=== PATIENT | female | born 1950 | race Two or more races ===

== ENCOUNTER 2021-05-13 18:46 | Inpatient (IN) | payer OTHER ==
[~2021-05-13] VITALS: Ht 170.2 cm; Wt 59.1 kg
[2021-05-13] MEDS ORDERED: NOREPINEPHRINE 8 MG/250ML KIT 250 ML IV ONE (18:54)
[2021-05-13] MEDS ORDERED: NOREPINEPHRINE 8 MG/250ML KIT 250 ML IV SCH (19:15)
[2021-05-13 19:55] LABS: Hematocrit 41.1 % (36.0-46.0); Hemoglobin 13.3 g/dL (12.2-16.2); Mean Corpuscular Hemoglobin 30.7 pg (28.0-32.0); Mean Corpuscular Hgb Conc. 32.3 g/dL (32.0-36.0); Mean Corpuscular Volume 94.8 fL (80.0-100.0); Platelet Count (auto) 121 10^3/uL (140-450); Red Blood Cells 4.34 10^6/uL (4.0-5.20); Red Cell Distribution Width 13.4 % (11.8-14.3); White Blood Cell 12.2 10^3/uL (4.4-10.8)
[2021-05-13 20:07] LABS: Basophils % (manual) 0 (0.0-2.0); Blast Cells 0; Promyelocytes % 0
[2021-05-13 20:20] LABS: Albumin 2.6 g/dL (3.4-5.0); Calcium 8.2 mg/dL (8.5-10.1); Magnesium 2.6 mg/dL (1.6-2.6); Potassium 4.3 mmol/L (3.5-5.1)
[2021-05-13 20:24] LABS: BUN/Creatinine Ratio 22.5; Bilirubin, Total 0.2 mg/dL (0.2-1.0); Total Protein 6.1 g/dL (6.4-8.2)
[2021-05-13] MEDS ORDERED: SODIUM CHLORIDE 0.9% 1,000 ML IV ONE (20:30)
[2021-05-13 20:54] LABS: INR 1.11 (0.9-1.15); Partial Thromboplastin Time 26.6 sec (23.0-31.2)
[2021-05-13 21:08] LABS: Band Neutrophils % (manual) 14; Eosinophils % (manual) 1 (0-7); Metamyelocytes % 6; Monocytes % (manual) 8 (0-12); Myelocytes % 2; Reactive Lymphocytes 3
[2021-05-13 21:09] LABS: Lymphocytes % (manual) 36 (10.0-50.0)
[2021-05-13] MEDS ORDERED: MORPHINE SULF INJ 2 MG/ML SYRINGE 1ML IV PRN (21:30)
[2021-05-13] MEDS ORDERED: ONDANSETRON HCL 4 MG/2 ML VIAL IV PRN ×2 (21:30→22:15)
[2021-05-13] MEDS ORDERED: ALBUMIN 5% 250 ML IV ONE (21:30)
[2021-05-13] MEDS ORDERED: NITROGLYCERIN 0.4 MG SL TAB SL PRN (21:30)
[2021-05-13] MEDS ORDERED: ATORVASTATIN 20 MG TAB PO SCH (22:00)
[2021-05-14] MEDS: MORPHINE SULFATE 4 MG/ML SYR/VIAL IV PRN ×2 (00:58→06:18)
[2021-05-14 01:16] VITALS: BP 109/63
[2021-05-14] MEDS ORDERED: DEXA2TAB PO (01:31)
[2021-05-14] MEDS ORDERED: PHE100C PO (01:31)
[2021-05-14] MEDS ORDERED: ATOR20TA50 PO (01:31)
[2021-05-14] MEDS: LORazepam 2MG/ML-1ML VIAL IV PRN ×7 (03:03→23:09)
[2021-05-14 04:00] VITALS: BP 126/77
[2021-05-14] MEDS: SODIUM CHLORIDE 0.9% 1,000 ML IV SCH ×3 (06:17→11:11)
[2021-05-14] MEDS ORDERED: PANTOPRAZOLE 40 MG/10 ML VIAL INJ IV SCH (10:00)
[2021-05-14] MEDS ORDERED: ASPirin 81 mg TAB PO SCH (10:00)
[2021-05-14] MEDS ORDERED: MORPHINE SULFATE 4 MG/ML SYR/VIAL IV PRN (15:45)
[2021-05-14] MEDS: MORPHINE SULF INJ 2 MG/ML SYRINGE 1ML IV PRN (15:52)
[2021-05-15] MEDS: LORazepam 2MG/ML-1ML VIAL IV PRN ×10 (01:25→18:46)
[2021-05-15 08:00] VITALS: BP 130/74
[2021-05-15 11:55] VITALS: BP 113/58
[2021-05-15] MEDS: SODIUM CHLORIDE 0.9% 1,000 ML IV SCH (13:30)
[2021-05-15 16:00] VITALS: BP 114/64
[2021-05-16] MEDS: SODIUM CHLORIDE 0.9% 1,000 ML IV SCH ×2 (02:50→15:57)
[2021-05-16 09:00] VITALS: BP 123/71
[2021-05-16] MEDS: LORazepam 2MG/ML-1ML VIAL IV PRN ×2 (09:14→16:21)
[2021-05-16 13:00] VITALS: BP 137/70
[2021-05-16] MEDS: MORPHINE SULF INJ 2 MG/ML SYRINGE 1ML IV PRN ×3 (13:55→16:54)
[2021-05-16] MEDS ORDERED: MORPHINE SULF INJ 2 MG/ML SYRINGE 1ML IV PRN (14:15)
[2021-05-16 15:12] VITALS: BP 137/70
[2021-05-16 16:53] VITALS: BP 122/56
== END 2021-05-16 17:50 | disposition hospice, home (50) | DRG 280 ==
LOC: EDBD 18:46 → ER 18:52 → EDBD 18:52 → TELE-CENTR 22:05
PROVIDERS: ADMIT Nurse Practitioner; ATTEND Internal Medicine Geriatric Medicine
DX: I21.4 Non-ST elevation (NSTEMI) myocardial infarction (principal); I46.9 Cardiac arrest, cause unspecified; J96.00 Acute respiratory failure, unspecified whether with hypoxia or hypercapnia; E87.2 Acidosis; D49.6 Neoplasm of unspecified behavior of brain; Z66 Do not resuscitate; I10 Essential (primary) hypertension; Z51.5 Encounter for palliative care; Z20.822 Contact with and (suspected) exposure to COVID-19; E78.5 Hyperlipidemia, unspecified
CPT/HCPCS: 36415; 36600; 71045; 80053; 82805; 83735; 84484; 85007; 85027; 85610; 85730; 87040; 87081; 87426; 93005; 96365; 96366; 99291; G0378